=== PATIENT | female | born 2000 | race Two or more races ===

== ENCOUNTER 2025-03-01 19:44 | Emergency (ER) | payer OTHER ==
[2025-03-01 20:14] LABS: BASOPHILS ABSOLUTE AUTO 0.05 K/uL (0.00-0.20); BASOPHILS PERCENT AUTO 0.5 % (0.0-1.0); EOSINOPHILS ABSOLUTE AUTO 0.25 K/uL (0.00-0.45); EOSINOPHILS PERCENT AUTO 2.5 % (0.0-6.0); HEMATOCRIT 40.8 % (37.0-47.0); HEMOGLOBIN 14.2 g/dL (12.0-16.0); IMMATURE GRAN ABSOLUTE AUTO 0.03 K/uL (0.00-0.05); IMMATURE GRAN PERCENT AUTO 0.3 % (0.0-0.4); LYMPHOCYTES ABSOLUTE AUTO 2.41 K/uL (1.00-4.80); LYMPHOCYTES PERCENT AUTO 24.3 % (24.0-44.0); MEAN CORPUSCULAR HGB CONC 34.8 g/dL (32.0-36.0); MEAN CORPUSCULAR VOLUME 89.1 fL (83.0-99.0); MEAN PLATELET VOLUME 9.8 fL (9.4-12.3); MONOCYTES ABSOLUTE AUTO 0.43 K/uL (0.00-0.80); MONOCYTES PERCENT AUTO 4.3 % (0.0-8.0); NEUTROPHILS ABSOLUTE AUTO 6.75 K/uL (1.80-7.70); NEUTROPHILS PERCENT AUTO 68.1 % (41.0-71.0); PLATELET COUNT,PLT 247 K/uL (150-400); RED BLOOD CELL COUNT 4.58 M/uL (4.10-5.30); WHITE BLOOD CELL COUNT,WBC 9.92 K/uL (3.9-11.3)
[2025-03-01 20:41] LABS: A/G RATIO 1.1 (0.9-1.6); ALANINE AMINOTRANSFERASE,ALT 31 IU/L (14-63); ALKALINE PHOSPHATASE 59 U/L (46-116); ASPARTATE AMNIOTRANSFERASE,AST 20 IU/L (15-37); BILIRUBIN TOTAL 0.3 mg/dL (0.2-1.0); BLOOD UREA NITROGEN,BUN 9 mg/dL (7.0-18.0); CALCIUM 9.2 mg/dL (8.5-10.1); CARBON DIOXIDE,CO2 24.2 mmol/L (21.0-32.0); CHLORIDE,CL 105 mmol/L (98-107); CREATININE 0.9 mg/dL (0.6-1.0); EST CRCL DRUG DOSING (CG) 92.11 mL/min; GLUCOSE RANDOM 147 mg/dL (74-106); POTASSIUM,K 3.7 mmol/L (3.5-5.1); PROTEIN TOTAL,TP 7.6 g/dL (6.4-8.2); SODIUM,NA 139 mmol/L (136-145)
[2025-03-01 20:43] LABS: ESTIMATED GFR 90 mL/min (>60); HCG QUANTITATIVE < 1.0 mIU/mL
[2025-03-01 20:48] LABS: APPEARANCE,URINE CLEAR; BILIRUBIN,URINE NEGATIVE (NEGATIVE); COLOR,URINE YELLOW; GLUCOSE,URINE NEGATIVE (NEGATIVE); KETONES,URINE NEGATIVE (NEGATIVE); LEUKOCYTE ESTERASE,URINE NEGATIVE (NEGATIVE); NITRITE,URINE NEGATIVE (NEGATIVE); OCCULT BLOOD,URINE NEGATIVE (NEGATIVE); PROTEIN,URINE NEGATIVE (NEGATIVE); UROBILINOGEN,URINE 0.2 EU/dL (<2.0)
== END 2025-03-01 21:05 | disposition home or self-care (01) ==
LOC: MW.ED 19:44
DX: N93.9 Abnormal uterine and vaginal bleeding, unspecified (principal); Z75.3 Unavailability and inaccessibility of health-care facilities
CPT/HCPCS: 36415; 80053; 81003; 84702; 85025; 86900; 86901; 99283; 99284